=== PATIENT | male | born 1965 | race African-American/Black ===

== ENCOUNTER 2017-04-06 07:27 | Emergency (ER) | payer OTHER ==
[~2017-04-06] VITALS: Ht 172.7 cm; Wt 45.4 kg
[~2017-04-06 07:27] MED LIST: BACTRIM DS TAB1 EACH PO; CLOZAPINE100 M1 PO; DEPAKOTE ER500 MG PO; GEODON20 M1 IM; NAPROSYN500 MG PO; SEROQUEL XR200 MG PO
== END 2017-04-06 08:10 | disposition home or self-care (01) ==
LOC: ER 07:27
DX: S80.01XA Contusion of right knee, initial encounter (principal); M54.9 Dorsalgia, unspecified; F20.9 Schizophrenia, unspecified; F17.210 Nicotine dependence, cigarettes, uncomplicated; W18.39XA Other fall on same level, initial encounter; Y93.89 Activity, other specified; Y92.89 Other specified places as the place of occurrence of the external cause; Y99.8 Other external cause status